=== PATIENT | male | born 2000 | race Caucasian/White ===

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

== ENCOUNTER 2019-05-03 11:21 | Emergency (ER) | payer OTHER ==
[~2019-05-03] VITALS: Ht 165.1 cm; Wt 49.9 kg
[2019-05-03 11:25] VITALS: BP 111/70
== END 2019-05-03 12:23 | disposition home or self-care (01) ==
LOC: ED 11:21
DX: R56.9 Unspecified convulsions (principal); Z98.890 Other specified postprocedural states; Z88.8 Allergy status to other drugs, medicaments and biological substances

== ENCOUNTER 2019-09-04 11:31 | Inpatient (IN) | payer OTHER ==
[~2019-09-04] VITALS: Ht 152.4 cm; Wt 35.4 kg
[2019-09-04 13:46] LABS: BASOPHIL % 0.3 % (0-2); PLATELET COUNT 234 x10^3mcL (130-400); RED CELL DISTRIBUTION WIDTH 12.9 % (11.5-14.5)
[2019-09-04 14:29] LABS: ALBUMIN 4.4 g/dL (3.4-5.0); ALKALINE PHOSPHATASE 85 U/L (46-116); ALT/SGPT 33 U/L (16-63); AST/SGOT 16 U/L (15-37); BILIRUBIN TOTAL 0.5 mg/dL (0.20-1.00); CALCIUM 9.3 mg/dL (8.5-10.1); CARBON DIOXIDE 22.9 mmol/L (21-32); CHLORIDE SERUM 105 mmol/L (98-107); CREATININE SERUM 0.6 mg/dL (0.7-1.3); GFR1 > 60 mL/min; GLUCOSE SERUM 121 mg/dL (74-106); POTASSIUM SERUM 3.5 mmol/L (3.5-5.1); SODIUM SERUM 140 mmol/L (136-145); TOTAL PROTEIN, SERUM 7.3 g/dL (6.4-8.2)
[2019-09-04 15:35] VITALS: BP 99/62
[2019-09-04 21:46] VITALS: BP 97/55
[2019-09-05 06:45] VITALS: BP 115/69
[2019-09-05 07:48] LABS: CALCIUM 8.8 mg/dL (8.5-10.1); CHLORIDE SERUM 109 mmol/L (98-107); CREATININE SERUM 0.5 mg/dL (0.7-1.3); GFR1 > 60 mL/min; GLUCOSE SERUM 74 mg/dL (74-106); POTASSIUM SERUM 3.9 mmol/L (3.5-5.1); SODIUM SERUM 142 mmol/L (136-145)
[2019-09-05 08:17] LABS: BASOPHIL % 0.3 % (0-2); PLATELET COUNT 192 x10^3mcL (130-400); RED CELL DISTRIBUTION WIDTH 13.2 % (11.5-14.5)
[2019-09-05 08:45] VITALS: BP 98/57
[2019-09-05 12:49] VITALS: BP 98/51
[2019-09-05 15:55] VITALS: BP 101/45
[2019-09-05 22:21] VITALS: BP 109/63
[2019-09-06 05:33] VITALS: BP 98/47
[2019-09-06 06:32] LABS: BASOPHIL % 0.4 % (0-2); PLATELET COUNT 211 x10^3mcL (130-400); RED CELL DISTRIBUTION WIDTH 12.1 % (11.5-14.5)
[2019-09-06 06:39] LABS: CALCIUM 8.6 mg/dL (8.5-10.1); CARBON DIOXIDE 22.7 mmol/L (21-32); CHLORIDE SERUM 108 mmol/L (98-107); CREATININE SERUM 0.5 mg/dL (0.7-1.3); GFR1 > 60 mL/min; GLUCOSE SERUM 81 mg/dL (74-106); POTASSIUM SERUM 3.8 mmol/L (3.5-5.1); SODIUM SERUM 141 mmol/L (136-145)
[2019-09-06 09:44] VITALS: BP 105/62
[2019-09-06] MEDS ORDERED: RXMED PO (10:15)
[2019-09-06 10:55] VITALS: BP 105/62
== END 2019-09-06 11:50 | disposition home or self-care (01) | DRG 53 ==
LOC: ED 11:31 → DU 14:03
PROVIDERS: Emergency Medicine; ADMIT Internal Medicine
DX: G40.909 Epilepsy, unspecified, not intractable, without status epilepticus (principal); E43 Unspecified severe protein-calorie malnutrition; G80.9 Cerebral palsy, unspecified; Q02 Microcephaly; M41.9 Scoliosis, unspecified; D72.829 Elevated white blood cell count, unspecified
CPT/HCPCS: G0378; J2060; J2405; J7030